=== PATIENT | male | born 1950 | race African-American/Black ===

== ENCOUNTER → 2020-02-13 | Outpatient (CLI) | payer OTHER ==
[~2020-02-13] MED LIST: ASPIR 8181 MG PO; CARVEDILOL25 MG PO; FLOMAX0.4 MG PO; LISINOPRIL10 MG PO; PERCOCET 5-3251 EACH PO
== END ==
LOC: SJCVCIMAG 06:59
PROVIDERS: ATTEND Internal Medicine
DX: I08.3 Combined rheumatic disorders of mitral, aortic and tricuspid valves (principal); I77.810 Thoracic aortic ectasia; I11.9 Hypertensive heart disease without heart failure; I42.9 Cardiomyopathy, unspecified; E78.5 Hyperlipidemia, unspecified; D86.9 Sarcoidosis, unspecified; I44.2 Atrioventricular block, complete; I48.0 Paroxysmal atrial fibrillation; Z79.01 Long term (current) use of anticoagulants; Z79.899 Other long term (current) drug therapy; Z95.0 Presence of cardiac pacemaker

== ENCOUNTER → 2020-04-01 | Outpatient (CLI) | payer OTHER | LOC: RAD 10:32 | DX: M25.851 Other specified joint disorders, right hip (principal); Z86.2 Personal history of diseases of the blood and blood-forming organs and certain disorders involving the immune mechanism ==

== ENCOUNTER 2021-02-20 15:47 | Emergency (ER) | payer BC ==
[~2021-02-20] VITALS: Ht 180.3 cm; Wt 74.8 kg
[2021-02-20] MEDS ORDERED: JANTOVEN5 MG PO (16:19)
[2021-02-20] MEDS ORDERED: LISINOPRIL20 MG PO (16:21)
[2021-02-20 17:49] VITALS: BP 141/88
== END 2021-02-20 17:53 | disposition home or self-care (01) ==
LOC: ER 15:47
DX: N43.3 Hydrocele, unspecified (principal); Z87.442 Personal history of urinary calculi; Z88.5 Allergy status to narcotic agent